=== PATIENT | male | born 1970 | race African-American/Black ===

== ENCOUNTER 2019-03-04 09:25 | Outpatient (CLI) | payer OTHER ==
[2019-03-04 11:37] LABS: Hemoglobin 14.6 g/dL (14.0-18.0); Platelet Count 293 thou/uL (130-400)
[2019-03-04 12:04] LABS: Anion Gap 12 mmol/L (10-20); BUN (Urea Nitrogen) 17 mg/dL (8.9-20.6); Calc. Creatinine Clearance 0 mL/min (70-130); Calcium 9.6 mg/dL (7.8-10.44); Carbon Dioxide 26 mmol/L (22-29); Chloride 102 mmol/L (98-107); Estimated GFR-MDRD 75; Glucose 210 mg/dL (70-105); Potassium 3.6 mmol/L (3.5-5.1); Sodium 136 mmol/L (136-145)
--- NOTE | 2019-03-04 16:52 | EKG ---
Test Reason : Blood Pressure : / mmHG Vent. Rate : 073 BPM Atrial Rate : 073 BPM P-R Int : 160 ms QRS Dur : 098 ms QT Int : 430 ms P-R-T Axes : 047 -19 016 degrees QTc Int : 473 ms Normal sinus rhythm Incomplete right bundle branch block Nonspecific ST abnormality Abnormal ECG When compared with ECG of 07-OCT-2012 08:48, No significant change was found Confirmed by TYSON HERNANDEZ, . SPrudencio ([id number]) on 03/04/2019 4:51:53 PM Referred By: DL Confirmed By:DR. Margarita MEHTA MD
== END 2019-03-04 09:26 | disposition home or self-care (01) ==
LOC: LABBT 09:25
PROVIDERS: ATTEND Internal Medicine Cardiovascular Disease
DX: Z01.818 Encounter for other preprocedural examination (principal)
CPT/HCPCS: 80048; 85014; 85018; 85049; 93005; 93010

== ENCOUNTER 2019-03-06 06:26 | Day surgery (SDC) | payer OTHER ==
[2019-03-04 10:24] VITALS: BMI 39.9
[2019-03-06] MEDS ORDERED: Heparin 10,000 UNITS/1 ML VIAL ONE (06:29)
[2019-03-06] MEDS ORDERED: Fentanyl 100 MCG/2 ML VIAL ONE (07:06)
[2019-03-06] MEDS ORDERED: Midazolam HCl 2 mg/2 ml Vial ONE (07:07)
[2019-03-06] MEDS ORDERED: Bivalirudin 250 MG VIAL ONE (07:48)
[2019-03-06] MEDS ORDERED: Morphine 2 MG/ML SYRINGE ONE (08:35)
[2019-03-06 08:43] LABS: Cardiac Risk 3.3 (Less than 4.5)
[2019-03-06] MEDS ORDERED: Iopamidol 370 76% 50 ML VIAL FS ONE (09:17)
[2019-03-06] MEDS ORDERED: Iopamidol 370 76% 100 ML VIAL ONE (09:17)
[2019-03-06] MEDS ORDERED: Morphine 4 MG/ML VIAL SLOW IVP PRN (09:24)
[2019-03-06] MEDS ORDERED: Sodium Chloride 0.9% 1,000 ML IV SCH (09:24)
[2019-03-06] MEDS ORDERED: Morphine 2 MG/ML SYRINGE SLOW IVP PRN (09:28)
[2019-03-06] MEDS ORDERED: Amlodipine 5 MG TAB ONE (09:34)
[2019-03-06] MEDS ORDERED: hydrALAZINE 25 MG TAB PO SCH (10:15)
[2019-03-06] MEDS ORDERED: Amlodipine 5 MG TAB PO SCH (10:15)
[2019-03-06] MEDS ORDERED: Lisinopril/Hydrochlorothiazide 20/25 mg Tablet PO SCH (10:15)
[2019-03-06] MEDS ORDERED: Morphine 4 MG/ML VIAL ONE (10:53)
[2019-03-07] MEDS ORDERED: Aspirin Chewable 81 MG TAB PO SCH (09:00)
== END 2019-03-06 17:36 | disposition home or self-care (01) ==
LOC: CCL 06:26
PROVIDERS: ATTEND Internal Medicine Cardiovascular Disease
PROC: B2111ZZ Fluoroscopy of Multiple Coronary Arteries using Low Osmolar Contrast (ICD-10-PCS; principal; 2019-03-06)
PROC: 4A023N7 Measurement of Cardiac Sampling and Pressure, Left Heart, Percutaneous Approach (ICD-10-PCS; principal; 2019-03-06)
DX: I25.10 Atherosclerotic heart disease of native coronary artery without angina pectoris (principal); E11.9 Type 2 diabetes mellitus without complications; I10 Essential (primary) hypertension; G47.33 Obstructive sleep apnea (adult) (pediatric); Z79.1 Long term (current) use of non-steroidal anti-inflammatories (NSAID); Z79.84 Long term (current) use of oral hypoglycemic drugs; Z79.82 Long term (current) use of aspirin; Z79.899 Other long term (current) drug therapy
CPT/HCPCS: 36416; 80061; 85347; 93458; 93571; 99152; 99153; C1769; C1887; J0153; J0583; J1644; J2250; J2270; J3010; Q9967

== ENCOUNTER 2021-06-08 10:24 | Outpatient (CLI) | payer OTHER ==
[2021-06-08 12:10] LABS: Anion Gap 13 mmol/L (10-20); BUN (Urea Nitrogen) 20 mg/dL (8.4-25.7); Calc. Creatinine Clearance 0 mL/min (70-130); Calcium 9.7 mg/dL (7.8-10.44); Carbon Dioxide 23 mmol/L (22-29); Chloride 104 mmol/L (98-107); Glucose 195 mg/dL (70-105); Potassium 4.1 mmol/L (3.5-5.1); Sodium 136 mmol/L (136-145)
[2021-06-08 12:15] LABS: #Eosinphils 0.3 10x3/uL (0.0-0.5); #Monocytes 0.9 10x3/uL (0.0-1.1); #Neutrophils 4.5 10x3/uL (1.5-8.4); %Basophils 0.4 % (0.0-2.0); %Eosinophils 3.4 % (0.0-6.0); %Lymphocytes 27.2 % (18.0-47.0); %Monocytes 11.1 % (0.0-10.0); %Neutrophils 57.5 % (40.0-75.0); Hemoglobin 15.2 g/dL (13.5-17.5); Mean Corpuscular HGB CONC 34.5 g/dL (32.0-36.0); Mean Corpuscular Hemoglobin 29.7 pg (27.0-33.0); Mean Corpuscular Volume 85.9 fl (81.2-95.1); Mean Platelet Volume 10.4 fl (7.4-10.4); Platelet Count 269 10x3/uL (150-450); RBC Distribution Width 12.7 % (11.5-14.5); Red Blood Cell (RBC) Count 5.12 10x6/uL (4.32-5.72); White Blood Cell (WBC) Count 7.8 10x3/uL (3.5-10.5)
[2021-06-08 12:26] LABS: Prothrombin Time 11.2 sec (9.5-12.1)
[2021-06-09 16:05] LABS: SARS-CoV-2 PCR by NAA Not Detected (NotDetected)
== END 2021-06-08 10:25 | disposition home or self-care (01) ==
LOC: LABBT 10:24
PROVIDERS: ATTEND Orthopaedic Surgery
DX: Z01.818 Encounter for other preprocedural examination (principal); M17.11 Unilateral primary osteoarthritis, right knee; Z20.822 Contact with and (suspected) exposure to COVID-19
CPT/HCPCS: 80048; 85025; 85610; 87081; 93005; 93010; U0003; U0005

== ENCOUNTER 2022-04-06 10:14 | Outpatient (CLI) | payer OTHER ==
[2022-04-06 12:27] LABS: #Eosinphils 0.3 10x3/uL (0.0-0.5); #Neutrophils 4.5 10x3/uL (1.5-8.4); %Basophils 0.5 % (0.0-2.0); %Eosinophils 3.7 % (0.0-6.0); %Lymphocytes 28.2 % (18.0-47.0); %Monocytes 11.9 % (0.0-10.0); %Neutrophils 55.5 % (40.0-75.0); Hemoglobin 15.9 g/dL (13.5-17.5); Mean Corpuscular HGB CONC 34.3 g/dL (32.0-36.0); Mean Corpuscular Hemoglobin 29.1 pg (27.0-33.0); Mean Corpuscular Volume 84.8 fl (81.2-95.1); Mean Platelet Volume 10.6 fl (7.4-10.4); Platelet Count 291 10x3/uL (150-450); RBC Distribution Width 12.7 % (11.5-14.5); Red Blood Cell (RBC) Count 5.47 10x6/uL (4.32-5.72); White Blood Cell (WBC) Count 8.1 10x3/uL (3.5-10.5)
[2022-04-06 12:44] LABS: Prothrombin Time 11.1 sec (9.5-12.1)
[2022-04-06 12:48] LABS: Anion Gap 14 mmol/L (10-20); BUN (Urea Nitrogen) 16 mg/dL (8.4-25.7); Calc. Creatinine Clearance 0 mL/min (70-130); Calcium 9.1 mg/dL (7.8-10.44); Carbon Dioxide 23 mmol/L (22-29); Chloride 101 mmol/L (98-107); Glucose 256 mg/dL (70-105); Sodium 134 mmol/L (136-145)
[2022-04-06 19:06] LABS: SARS-CoV-2 PCR by NAA Not Detected (NotDetected)
== END 2022-04-06 10:15 | disposition home or self-care (01) ==
LOC: LABBT 10:14
PROVIDERS: ATTEND Orthopaedic Surgery
DX: Z01.818 Encounter for other preprocedural examination (principal); M17.12 Unilateral primary osteoarthritis, left knee; Z20.822 Contact with and (suspected) exposure to COVID-19
CPT/HCPCS: 80048; 85025; 85610; 87081; 93005; 93010; U0003; U0005

== ENCOUNTER 2022-04-06 10:30 | Inpatient (IN) | payer OTHER, SELFPAY ==
[2022-04-09 12:31] VITALS: BMI 40.7
[2022-04-11] MEDS ORDERED: Tranexamic Acid 1,000 MG/10 ML VIAL ONE (06:18)
[2022-04-11] MEDS ORDERED: Vancomycin (BATCH) 1.5 GRAM/300 ML BAG ONE (06:18)
[2022-04-11] MEDS ORDERED: Sodium Chloride 0.9% 100 ML ONE (06:18)
[2022-04-11] MEDS ORDERED: fentaNYL Citrate/PF 100 MCG/2 ML SYRINGE ONE (06:27)
[2022-04-11] MEDS ORDERED: Bupivacaine PF 0.5% 30 ML VIAL ONE (06:44)
[2022-04-11] MEDS ORDERED: ceFAZolin (BATCH) 2 GM/100 ML BAG ONE (06:48)
[2022-04-11] MEDS ORDERED: EPINEPHrine 1 MG/ML AMP ONE (06:48)
[2022-04-11] MEDS ORDERED: Fentanyl 100 MCG/2 ML VIAL ONE ×2 (06:50→10:06)
[2022-04-11] MEDS ORDERED: Midazolam HCl 2 mg/2 ml Vial ONE (06:50)
[2022-04-11] MEDS ORDERED: Ropivacaine 0.5% HCl/PF (150 MG/30 ML VIAL) ONE (07:26)
[2022-04-11] MEDS ORDERED: Glycopyrrolate 0.2 MG/ML 5 ML SYRINGE ONE (07:26)
[2022-04-11] MEDS ORDERED: PROPOFOL 200 MG/20 ML VIAL ONE (07:26)
[2022-04-11] MEDS ORDERED: Lidocaine 1% PF 5 ML VIAL ONE (07:26)
[2022-04-11] MEDS ORDERED: PHENYLEPHRINE-NS 100 MCG/ML 10 ML SYRINGE ONE (07:26)
[2022-04-11] MEDS ORDERED: Rocuronium Bromide 10 MG/ML (10ML VIAL) ONE (07:26)
[2022-04-11] MEDS ORDERED: Ondansetron PF 4 MG/2 ML Vial ONE (07:26)
[2022-04-11] MEDS ORDERED: Fentanyl 100 MCG/2 ML VIAL IV PRN (07:46)
[2022-04-11] MEDS ORDERED: HYDROcodone/Acetaminophen 10/325 mg Tablet PO PRN (08:00)
[2022-04-11] MEDS ORDERED: Ropivacaine 0.2% 550 ML 550 ML NERVE BLCK SCH (08:00)
[2022-04-11] MEDS ORDERED: Promethazine HCl 25 MG/ML VIAL IM PRN ×3 (08:00→11:25)
[2022-04-11] MEDS ORDERED: traMADol HCl 50 MG TAB PO PRN (08:00)
[2022-04-11] MEDS ORDERED: Ondansetron PF 4 MG/2 ML Vial IVP PRN (08:00)
[2022-04-11] MEDS ORDERED: Zolpidem Tartrate 5 MG TAB PO PRN ×2 (08:00→11:25)
[2022-04-11] MEDS ORDERED: Promethazine HCl 25 MG/ML VIAL IVPB PRN (09:45)
[2022-04-11] MEDS ORDERED: Ondansetron HCl/PF 4 MG/2 ML Vial IVP PRN (09:45)
[2022-04-11] MEDS ORDERED: diphenhydrAMINE 25 MG CAP PO PRN (11:25)
[2022-04-11] MEDS ORDERED: Acetaminophen 325 MG TAB PO PRN (11:25)
[2022-04-11] MEDS: HYDROcodone/Acetaminophen 10/325 mg Tablet PO PRN ×2 (11:41→16:41)
[2022-04-11] MEDS: Ketorolac Tromethamine 30 MG/ML VIAL IVP PRN (11:41)
[2022-04-11] MEDS: Sodium Chloride 0.9% 1,000 ML IV SCH ×2 (11:52→22:39)
[2022-04-11] MEDS ORDERED: Ketorolac Tromethamine 30 MG/ML VIAL IVP SCH (12:00)
[2022-04-11] MEDS ORDERED: Lidocaine 1% MPF 2 ML VIAL ONE (13:16)
[2022-04-11] MEDS ORDERED: Dextrose 5% in Water 1,000 ML IV PRN (13:19)
[2022-04-11] MEDS ORDERED: Dextrose 50% Abboject 50 ML SYRINGE SLOW IVP PRN (13:19)
[2022-04-11] MEDS ORDERED: hydrALAZINE 20 MG/ML VIAL SLOW IVP PRN (13:21)
[2022-04-11] MEDS: ceFAZolin (BATCH) 2 GM in Premix Bag 1 BAG IVPB SCH ×2 (15:52→22:39)
[2022-04-11] MEDS: Ondansetron PF 4 MG/2 ML Vial IVP PRN (16:41)
[2022-04-11] MEDS ORDERED: Vancomycin 1.5 GRAM/300 ML BAG 1.5 GM in Premix Bag 1 BAG IVPB SCH (18:00)
[2022-04-11] MEDS: HumaLOG 300 UNITS/3 ML VIAL SC PRN (18:35)
[2022-04-11] MEDS: Alogliptin 25 MG TAB PO SCH (21:00)
[2022-04-11] MEDS: metFORMIN XR 500 MG TAB PO SCH (21:00)
[2022-04-11] MEDS ORDERED: Amlodipine 10 MG TAB PO SCH (21:00)
[2022-04-11] MEDS ORDERED: Atorvastatin Calcium 40 MG TAB PO SCH (21:00)
[2022-04-11] MEDS: Ferrous Gluconate 324 MG TAB PO SCH (21:01)
[2022-04-11] MEDS: Aspirin 81 mg Enteric Coated Tablet PO SCH (21:01)
[2022-04-11] MEDS: Gabapentin 300 MG CAP PO SCH (21:02)
[2022-04-11] MEDS: Senokot S 8.6-50 MG TAB PO SCH (21:03)
[2022-04-12] MEDS: HYDROcodone/Acetaminophen 10/325 mg Tablet PO PRN ×5 (01:55→20:43)
[2022-04-12] MEDS: Ondansetron PF 4 MG/2 ML Vial IVP PRN ×3 (02:00→17:07)
[2022-04-12] MEDS: Ketorolac Tromethamine 30 MG/ML VIAL IVP PRN ×2 (05:23→17:06)
[2022-04-12] MEDS: traMADol HCl 50 MG TAB PO PRN ×2 (05:27→14:35)
[2022-04-12] MEDS: HumaLOG 300 UNITS/3 ML VIAL SC PRN ×3 (06:36→18:12)
[2022-04-12 07:22] LABS: Hemoglobin 13.8 g/dL (14.0-18.0); Mean Corpuscular HGB CONC 33.4 g/dL (32.0-36.0); Mean Corpuscular Hemoglobin 30.6 pg (27.0-31.0); Mean Corpuscular Volume 91.7 fL (78.0-98.0); Mean Platelet Volume 7.9 fL (7.4-10.4); Platelet Count 223 thou/uL (130-400); RBC Distribution Width 12.2 % (11.5-14.5); White Blood Cell (WBC) Count 11.4 thou/uL (4.8-10.8)
[2022-04-12] MEDS ORDERED: glyBURIDE 2.5 MG TAB PO SCH (07:30)
[2022-04-12 07:38] LABS: Anion Gap 9 mmol/L (10-20); BUN (Urea Nitrogen) 15 mg/dL (8.4-25.7); Calc. Creatinine Clearance 112 mL/min (70-130); Calcium 8.3 mg/dL (7.8-10.44); Carbon Dioxide 27 mmol/L (22-29); Chloride 102 mmol/L (98-107); Glucose 261 mg/dL (70-105); Potassium 3.9 mmol/L (3.5-5.1); Sodium 134 mmol/L (136-145)
[2022-04-12] MEDS ORDERED: hydrALAZINE 25 MG TAB PO SCH (09:00)
[2022-04-12] MEDS ORDERED: HYDROcodone/Acetaminophen 10/325 mg Tablet PO PRN (09:05)
[2022-04-12] MEDS ORDERED: Non-Formulary Item 1 EACH (Celecoxib [Celebrex] 200 MG Capsule) PO SCH (09:10)
[2022-04-12] MEDS: Sodium Chloride 0.9% 1,000 ML IV SCH ×2 (09:33→17:20)
[2022-04-12] MEDS: Aspirin 81 mg Enteric Coated Tablet PO SCH ×2 (09:36→20:39)
[2022-04-12] MEDS: Senokot S 8.6-50 MG TAB PO SCH ×2 (09:36→20:41)
[2022-04-12] MEDS: Multivitamin W/ Minerals 1 TAB PO SCH (09:36)
[2022-04-12] MEDS: Lisinopril/Hydrochlorothiazide 20/25 mg Tablet PO SCH (09:36)
[2022-04-12] MEDS: Ferrous Gluconate 324 MG TAB PO SCH ×2 (09:36→20:39)
[2022-04-12] MEDS: hydrALAZINE 25 MG TAB PO SCH (10:26)
[2022-04-12] MEDS: CeleCOXIB 100 MG CAP PO SCH (10:28)
[2022-04-12] MEDS: Alogliptin 25 MG TAB PO SCH (20:34)
[2022-04-12] MEDS: metFORMIN XR 500 MG TAB PO SCH (20:39)
[2022-04-12] MEDS: Gabapentin 300 MG CAP PO SCH (20:40)
[2022-04-12] MEDS: glyBURIDE 5 MG TAB PO SCH (20:40)
[2022-04-12] MEDS ORDERED: Amlodipine 10 MG TAB PO SCH (21:00)
[2022-04-12] MEDS ORDERED: SITAGLIPTIN PHOS PO SCH (21:00)
[2022-04-12] MEDS ORDERED: METFORMIN HCL PO SCH (21:00)
[2022-04-12] MEDS ORDERED: Atorvastatin Calcium 40 MG TAB PO SCH (21:00)
[2022-04-12] MEDS ORDERED: Non-Formulary Item 1 EACH (Atorvastatin Calcium [Atorvastatin Calcium] 80 MG Tablet) PO SCH (21:00)
[2022-04-12] MEDS ORDERED: [UNRECOGNIZED DRUG - OTHER] PO SCH (21:00)
[2022-04-13] MEDS: Sodium Chloride 0.9% 1,000 ML IV SCH (04:29)
[2022-04-13] MEDS: HYDROcodone/Acetaminophen 10/325 mg Tablet PO PRN ×2 (04:43→09:42)
[2022-04-13 04:56] VITALS: BP 144/80; TEMP 99.5
[2022-04-13 05:30] LABS: Hemoglobin 14.2 g/dL (14.0-18.0); Mean Corpuscular HGB CONC 32.7 g/dL (32.0-36.0); Mean Corpuscular Hemoglobin 30.7 pg (27.0-31.0); Mean Platelet Volume 7.6 fL (7.4-10.4); Platelet Count 218 thou/uL (130-400); RBC Distribution Width 12.3 % (11.5-14.5); Red Blood Cell (RBC) Count 4.63 mill/uL (4.70-6.10); White Blood Cell (WBC) Count 13.7 thou/uL (4.8-10.8)
[2022-04-13 05:49] LABS: Anion Gap 13 mmol/L (10-20); BUN (Urea Nitrogen) 16 mg/dL (8.4-25.7); Calc. Creatinine Clearance 103 mL/min (70-130); Calcium 8.9 mg/dL (7.8-10.44); Carbon Dioxide 24 mmol/L (22-29); Chloride 99 mmol/L (98-107); Glucose 233 mg/dL (70-105); Potassium 3.7 mmol/L (3.5-5.1); Sodium 132 mmol/L (136-145)
[2022-04-13] MEDS: HumaLOG 300 UNITS/3 ML VIAL SC PRN (05:49)
[2022-04-13] MEDS: Senokot S 8.6-50 MG TAB PO SCH (09:41)
[2022-04-13] MEDS: Ferrous Gluconate 324 MG TAB PO SCH (09:41)
[2022-04-13] MEDS: glyBURIDE 5 MG TAB PO SCH (09:41)
[2022-04-13] MEDS: Lisinopril/Hydrochlorothiazide 20/25 mg Tablet PO SCH (09:41)
[2022-04-13] MEDS: Aspirin 81 mg Enteric Coated Tablet PO SCH (09:41)
[2022-04-13] MEDS: CeleCOXIB 100 MG CAP PO SCH (09:42)
[2022-04-13] MEDS: Multivitamin W/ Minerals 1 TAB PO SCH (09:42)
[2022-04-13] MEDS: hydrALAZINE 25 MG TAB PO SCH (09:42)
[2022-04-13] MEDS ORDERED: glyBURIDE 5 MG TAB PO SCH (16:30)
== END 2022-04-13 13:00 | disposition home or self-care (01) | DRG 470 ==
LOC: SURG A 04-11 05:36
PROVIDERS: ADMIT Orthopaedic Surgery; ATTEND Hospitalist
PROC: 0SRD0J9 Replacement of Left Knee Joint with Synthetic Substitute, Cemented, Open Approach (ICD-10-PCS; principal; 2022-04-11)
DX: M17.12 Unilateral primary osteoarthritis, left knee (principal); M21.162 Varus deformity, not elsewhere classified, left knee; I10 Essential (primary) hypertension; E78.5 Hyperlipidemia, unspecified; E11.65 Type 2 diabetes mellitus with hyperglycemia
CPT/HCPCS: 36415; 36416; 80048; 85027; A4306; C1713; C1776; J0171; J0690; J1815; J1885; J2250; J2405; J2704; J2795; J3010; J3370; J3490; J7050; S0020